=== PATIENT | female | born 1970 | race Two or more races ===

== ENCOUNTER 2017-11-11 13:20 | Outpatient (CLI) | payer OTHER ==
[~2017-11-11 13:20] MED LIST: CELEXA10 MG; CELEXA20 MG; CYMBALTA30 MG; CYMBALTA60 MG; KETO10TA2 PO; ORPH100T PO; PRILOSEC2.5 MG
== END 2017-11-11 14:31 | disposition home or self-care (01) ==
LOC: SONOGRAMA 13:20
DX: M75.101 Unspecified rotator cuff tear or rupture of right shoulder, not specified as traumatic (principal)

== ENCOUNTER 2017-11-23 08:09 | Outpatient (CLI) | payer OTHER | END 2017-11-23 09:20 | disposition home or self-care (01) | LOC: SONOGRAMA 08:09 | DX: R10.13 Epigastric pain (principal); E04.8 Other specified nontoxic goiter ==

== ENCOUNTER → 2018-03-11 | Outpatient (CLI) | payer OTHER | END | disposition home or self-care (01) | LOC: RAD 15:19 | DX: M54.2 Cervicalgia (principal); M54.5 Low back pain; M54.6 Pain in thoracic spine ==

== ENCOUNTER 2018-07-12 13:28 | Outpatient (CLI) | payer OTHER | END 2018-07-12 13:30 | disposition home or self-care (01) | LOC: SONOGRAMA 13:28 | DX: D25.0 Submucous leiomyoma of uterus (principal) ==

== ENCOUNTER 2018-10-22 09:50 | Outpatient (CLI) | payer OTHER | END 2018-10-22 10:30 | disposition home or self-care (01) | LOC: RAD 09:50 | DX: M25.562 Pain in left knee (principal); M25.561 Pain in right knee; M17.0 Bilateral primary osteoarthritis of knee ==

== ENCOUNTER 2019-08-12 09:00 | Outpatient (CLI) | payer OTHER | END 2019-08-12 10:20 | disposition home or self-care (01) | LOC: SONOGRAMA 09:00 | DX: N83.201 Unspecified ovarian cyst, right side (principal) ==

== ENCOUNTER 2020-03-13 11:12 | Outpatient (CLI) | payer OTHER | END 2020-03-13 11:14 | disposition home or self-care (01) | LOC: SONOGRAMA 11:12 | DX: R10.31 Right lower quadrant pain (principal); R10.32 Left lower quadrant pain ==

== ENCOUNTER 2020-05-13 08:02 | Outpatient (CLI) | payer OTHER | END 2020-05-13 08:13 | disposition home or self-care (01) | LOC: SONOGRAMA 08:02 | PROVIDERS: ATTEND Internal Medicine Gastroenterology | DX: R10.13 Epigastric pain (principal) ==

== ENCOUNTER 2021-03-03 07:19 | Outpatient (CLI) | payer OTHER | END 2021-03-03 07:20 | disposition home or self-care (01) | LOC: SONOGRAMA 07:19 | PROVIDERS: ATTEND Specialist | DX: D25.1 Intramural leiomyoma of uterus (principal) ==

== ENCOUNTER 2022-10-13 07:27 | Outpatient (CLI) | payer OTHER | END 2022-10-13 07:45 | disposition home or self-care (01) | LOC: TOM 07:27 | PROVIDERS: ATTEND Psychiatry & Neurology Clinical Neurophysiology | DX: D49.6 Neoplasm of unspecified behavior of brain (principal); J32.4 Chronic pansinusitis ==

== ENCOUNTER 2023-08-25 07:33 | Outpatient (CLI) | payer OTHER | END 2023-08-25 07:45 | disposition home or self-care (01) | LOC: RAD 07:33 | PROVIDERS: ATTEND Pulmonary Function Technologist | DX: G47.33 Obstructive sleep apnea (adult) (pediatric) (principal); U09.9 Post COVID-19 condition, unspecified; J45.901 Unspecified asthma with (acute) exacerbation; J45.909 Unspecified asthma, uncomplicated; Z88.5 Allergy status to narcotic agent ==

== ENCOUNTER 2024-06-19 14:42 | Outpatient (CLI) | payer OTHER | END 2024-06-19 14:50 | disposition home or self-care (01) | LOC: RAD 14:42 | PROVIDERS: ATTEND Physical Medicine & Rehabilitation | DX: M77.31 Calcaneal spur, right foot (principal); M77.32 Calcaneal spur, left foot ==

== ENCOUNTER → 2025-06-20 07:06 | Outpatient (CLI) | payer OTHER | END | disposition home or self-care (01) | LOC: NUCLEAR 07:06 | PROVIDERS: ATTEND Internal Medicine Rheumatology | DX: M81.0 Age-related osteoporosis without current pathological fracture (principal); N95.1 Menopausal and female climacteric states; M06.4 Inflammatory polyarthropathy; M46.1 Sacroiliitis, not elsewhere classified ==

== ENCOUNTER 2025-06-20 10:48 | Outpatient (CLI) | payer OTHER | END 2025-06-20 10:57 | disposition home or self-care (01) | LOC: RAD 10:48 | PROVIDERS: ATTEND Internal Medicine Rheumatology | DX: M46.1 Sacroiliitis, not elsewhere classified (principal); J45.998 Other asthma; M06.4 Inflammatory polyarthropathy ==